=== PATIENT | female | born 1970 | race Caucasian/White ===

== ENCOUNTER → 2017-09-20 | Outpatient (CLI) | payer OTHER ==
[~2017-09-20] MED LIST: ACHYD1T PO; DCS100C PO; FEXO180T PO; IBP800T PO; NITR100C3 PO; PHEN200T27 PO; SOLI10TA4 PO
== END ==
LOC: RAD 14:07
PROVIDERS: ATTEND Obstetrics & Gynecology
DX: Z12.31 Encounter for screening mammogram for malignant neoplasm of breast (principal)
CPT/HCPCS: 77067

== ENCOUNTER 2017-10-24 06:27 | Outpatient (CLI) | payer OTHER ==
[~2017-10-24] VITALS: Ht 170.2 cm; Wt 91.2 kg
[2017-10-24] MEDS ORDERED: TOPI100T11 PO (13:26)
[2017-10-24] MEDS ORDERED: PREG150C PO (13:26)
[2017-10-24] MEDS ORDERED: HYDR25TA4 PO (13:26)
[2017-10-24] MEDS ORDERED: BUPR150T14 PO (13:26)
== END 2017-10-24 13:39 ==
LOC: PREOP 06:27
PROVIDERS: ATTEND Obstetrics & Gynecology
DX: Z01.818 Encounter for other preprocedural examination (principal); N76.5 Ulceration of vagina; D64.9 Anemia, unspecified

== ENCOUNTER 2017-10-26 12:43 | Day surgery (SDC) | payer OTHER ==
[~2017-10-26] VITALS: Ht 170.2 cm; Wt 91.2 kg
[~2017-10-26 12:43] MED LIST changes: +BUPR150T14 PO; +HYDR25TA4 PO; +PREG150C PO; +TOPI100T11 PO
[2017-10-26] MEDS ORDERED: ceFAZolin 1,000 MG (ANCEF) VIAL ONE (12:47)
--- OUTSIDE RECORDS SUMMARY | 2017-10-26 12:47 | XMS REPORT | Continuity of Care Document ---
Author Author [facility] Organization [facility] Address Unknown Phone Unavailable Allergies Active Description Code Type Severity Reaction Onset Reported/Identified Relationship to Patient Clinical Status Yes ciprofloxacin [id number] Drug Allergy Unknown N/V 10/24/2017 Medications Problems Date Dx Coded Attending Type Code Diagnosis Diagnosed By 08/22/2010 Ot 625.6 05/21/2012 Ot 617.3 PELV PERIT ENDOMETRIOSIS 05/21/2012 Ot 618.4 UTERVAGINAL PROLAPSE NOS 05/21/2012 Ot 621.0 POLYP OF CORPUS UTERI 05/21/2012 Ot 621.8 DISORDERS OF UTERUS NEC 05/21/2012 Ot 625.6 FEM STRESS INCONTINENCE 09/09/2015 Ot 470 09/09/2015 Ot 478.19 09/09/2015 Ot 780.79 09/09/2015 Ot V72.63 09/09/2015 Ot V72.81 09/09/2015 Ot V74.8 09/09/2015 Ot 470 09/09/2015 Ot 478.0 09/09/2015 Ot V76.12 09/09/2015 Ot 788.30 09/09/2015 Ot V72.83 09/09/2015 Ot V74.8 09/09/2015 Ot V76.12 09/09/2015 Ot 285.9 09/09/2015 Ot 618.4 09/09/2015 Ot 625.6 09/09/2015 Ot V72.63 09/09/2015 Ot 789.03 09/09/2015 Ot 793.5 09/09/2015 Ot V76.12 09/09/2015 COURT SHARMA, ANGELIC Pisano Ot V76.12 09/09/2015 TANIYA SHARMA, EMILY English Ot 537.1 09/09/2015 TANIYA SHARMA, EMILY English Ot 599.70 09/09/2015 TANIYA SHARMA, EMILY English Ot V13.02 09/09/2015 LINCOLN SHARMA, CRISTIANO Elkins Ot V76.12 09/24/2015 LINCOLN SHARMA, CRISTIANO Elkins Ot Z12.31 09/14/2016 Ot V76.12 OTH SCREEN MAMMO-MALIGN NEOPLASM OF [place] 09/14/2016 Ot 285.9 ANEMIA NOS 09/14/2016 Ot 618.4 UTERVAGINAL PROLAPSE NOS 09/14/2016 Ot 625.6 FEM STRESS INCONTINENCE 09/14/2016 Ot V72.63 PRE-PROCEDURAL LABORATORY EXAMINATION 09/14/2016 Ot 789.03 ABDOMINAL PAIN, RIGHT LOWER QUADRANT 09/14/2016 Ot 793.5 NOSP (ABN) FINDINGS ON RADIOLOGICAL OT 09/14/2016 Ot V76.12 OTH SCREEN MAMMO-MALIGN NEOPLASM OF [place] 09/14/2016 ANGELIC YUN MD Ot V76.12 OTH SCREEN MAMMO-MALIGN NEOPLASM OF [place] 09/14/2016 TANIYA SHARMA, EMILY English Ot 537.1 GASTRIC DIVERTICULUM 09/14/2016 TANIYA SHARMA, EMILY English Ot 599.70 HEMATURIA, UNSPECIFIED 09/14/2016 TANIYA SHARMA, EMILY English Ot V13.02 PERSONAL HISTORY, URINARY (TRACT) INFECT 09/14/2016 LINCOLN SHARMA, CRISTIANO Elknis Ot V76.12 OTH SCREEN MAMMO-MALIGN NEOPLASM OF [place] 09/14/2016 LINCOLN SHARMA, CRISTIANO Elkins Ot Z12.31 ENCNTR SCREEN MAMMOGRAM FOR MALIGNANT NE 09/14/2016 CRISTIANO STARK MD Ot Z12.31 ENCNTR SCREEN MAMMOGRAM FOR MALIGNANT NE 09/17/2017 Ot 285.9 ANEMIA NOS 09/17/2017 Ot 618.4 UTERVAGINAL PROLAPSE NOS 09/17/2017 Ot 625.6 FEM STRESS INCONTINENCE 09/17/2017 Ot V72.63 PRE-PROCEDURAL LABORATORY EXAMINATION 09/17/2017 Ot 789.03 ABDOMINAL PAIN, RIGHT LOWER QUADRANT 09/17/2017 Ot 793.5 NOSP (ABN) FINDINGS ON RADIOLOGICAL OT 09/17/2017 Ot V76.12 OTH SCREEN MAMMO-MALIGN NEOPLASM OF [place] 09/17/2017 ANGELIC YUN MD Ot V76.12 OTH SCREEN MAMMO-MALIGN NEOPLASM OF [place] 09/17/2017 TANIYA SHARMA, EMILY A Ot 537.1 GASTRIC DIVERTICULUM 09/17/2017 EMILY MONAHAN MD Ot 599.70 HEMATURIA, UNSPECIFIED 09/17/2017 EMILY MONAHAN MD Ot V13.02 PERSONAL HISTORY, URINARY (TRACT) INFECT 09/17/2017 CRISTIANO STARK MD Ot V76.12 OTH SCREEN MAMMO-MALIGN NEOPLASM OF [place] 09/17/2017 CRISTIANO STARK MD Ot Z12.31 ENCNTR SCREEN MAMMOGRAM FOR MALIGNANT NE 09/17/2017 CRISTIANO STARK MD Ot Z12.31 ENCNTR SCREEN MAMMOGRAM FOR MALIGNANT NE Procedures Results Encounters ACCT No. Visit Date/Time Discharge Status Pt. Type Provider Facility Loc./Unit Complaint [id number] 10/24/2017 06:27:00 2016 13:39:00 DIS Outpatient CRISTIANO STARK MD [facility] PREOP PERSISTENT VAGINAL ULCERATION [id number] 09/20/2017 14:07:00 2016 23:59:59 CLS Outpatient CRISTIANO STARK MD [facility] RAD SCREENING [id number] 09/14/2016 11:11:00 2015 23:59:59 CLS Outpatient CRISTIANO STARK MD [facility] RAD SCREENING [id number] 09/09/2015 09:59:00 2014 23:59:59 CLS Outpatient CRISTIANO STARK MD [facility] RAD SCREENING [id number] 09/18/2014 15:07:00 2013 23:59:59 CLS Outpatient CRISTIANO STARK MD [facility] RAD SCREENING [id number] 01/26/2014 16:02:00 2013 23:59:59 CLS Outpatient EMILY MONAHAN MD [facility] RAD HEMATURIA,UTIS [id number] 09/17/2013 15:04:00 2012 23:59:59 CLS Outpatient ANGELIC YUN MD [facility] RAD SCREENING [id number] 10/26/2017 12:43:00 ACT Outpatient LINCOLN SHARMA, CRISTIANO Diaz [facility] PERSISTENT VAGINAL ULCERATION [id number] 09/16/2012 15:04:00 Document Registration [id number] 07/08/2012 17:00:00 Document Registration [id number] 05/20/2012 05:49:00 Document Registration [id number] 05/13/2012 10:33:00 Document Registration [id number] 06/23/2011 13:44:00 Document Registration [id number] 08/22/2010 05:59:00 Document Registration [id number] 08/18/2010 08:18:00 Document Registration [id number] 06/14/2010 11:08:00 Document Registration [id number] 05/26/2010 05:39:00 Document Registration [id number] 05/23/2010 08:41:00 Document Registration
[2017-10-26] MEDS ORDERED: NS (IVPB) 50 ML ONE (12:48)
[2017-10-26] MEDS ORDERED: MIDAZOLAM 2 MG/2 ML (VERSED) VIAL ONE (12:58)
[2017-10-26] MEDS ORDERED: fentaNYL INJECTION 100 MCG/2 ML AMP ONE (12:58)
[2017-10-26] MEDS: LACTATED RINGERS 1,000 ML IV PRN ×2 (13:00→14:06)
[2017-10-26 13:04] LABS: BASOPHILS % (AUTO) 1 % (0-10); EOSINOPHILS # (AUTO) 0.1 10^3/uL (0.0-0.3); EOSINOPHILS % (AUTO) 1 % (0-10); LYMPHOCYTES # (AUTO) 2.4 X 10^3 (1.0-4.0); LYMPHOCYTES % (AUTO) 30 % (12-44); MEAN CORPUSCULAR HEMOGLOBIN 30 PG (25-34); MEAN CORPUSCULAR HGB CONC 35 G/DL (32-36); MEAN CORPUSCULAR VOLUME 87 FL (80-99); MONOCYTES # (AUTO) 0.6 X 10^3 (0.0-1.0); MONOCYTES % (AUTO) 8 % (0-12); NEUTROPHILS # (AUTO) 4.7 X 10^3 (1.8-7.8); NEUTROPHILS % (AUTO) 60 % (42-75); PLATELET COUNT 259 10^3/uL (130-400); RED BLOOD COUNT 4.75 10^6/uL (4.35-5.85); RED CELL DISTRIBUTION WIDTH 12.8 % (10.0-14.5); WHITE BLOOD COUNT 7.8 10^3/uL (4.3-11.0)
--- NOTE | 2017-10-26 13:07 | Progress Note-Pre Operative ---
Pre-Operative Progress Note H&P Reviewed The H&P was reviewed, patient examined and no changes noted. Date Seen by Provider: Oct 26, 2017 Time Seen by Provider: 13:07 Date H&P Reviewed: Oct 26, 2017 Time H&P Reviewed: 13:07 Pre-Operative Diagnosis: persistent vaginal apex ulceration CRISTIANO STARK MD Oct 26, 2017 1:07 pm
[2017-10-26] MEDS ORDERED: D5 LR IV SOLUTION 1,000 ML IV SCH (13:08)
--- NOTE | 2017-10-26 13:08 | Progress Note-Post Operative ---
Post-Operative Progess Note Surgeon (s)/Metallurgical Laboratory Assistant (s) Surgeon CRISTIANO STARK MD Metallurgical Laboratory Assistant: Alisia Andrews Pre-Operative Diagnosis persistent vaginal apex ulceration Post-Operative Diagnosis same with pathology pending Procedure & Operative Findings Date of Procedure 10/26/17 Procedure Performed/Findings ppartial vaginectomy Anesthesia Type Gen. Estimated Blood Loss Estimated blood loss (mL): minimal Specimens/Packing Specimens Removed partial vaginectomy Packing: none CRISTIANO STARK MD Oct 26, 2017 13:08
[2017-10-26] MEDS ORDERED: OXYC-202 PO (13:10)
--- NOTE | 2017-10-26 13:11 | Discharge Instructions ---
Discharge Instructions Discharge Medications New, Converted or Re-Newed RX: RX on Chart Patient Instructions Patient Instructions: as directed Return to The Hospital For: as directed Activity & Diet Discharge Diet: No Restrictions Activity as Tolerated: No Orders-Post D/C & Referrals Follow Up Appt: Call to make follow up appt. for patient in 1 weeks. Activity: Rest for 24 hours, than as tolerated. Diet: As tolerated-Clear Liquids only if nauseated. May shower or tub bathe as desired. No driving for 24 hours, no alcoholic beverages for 24 hours, and nothing per vagina (no tampons, douching, or intercourse) for 2 weeks. Patient to return to the clinic as soon as possible for: Temperature greater than 101F, Severe Pain, Foul discharge from incision or vagina, Excessive Bleeding (more than a period). CRISTIANO STARK MD Oct 26, 2017 1:11 pm
[2017-10-26] MEDS ORDERED: PROMETHAZINE INJ 25 MG/ML (PHENERGAN) AMP IM ONE (13:15)
[2017-10-26] MEDS ORDERED: KETOROLAC 30 MG/ML VIAL IVP ONE (13:15)
[2017-10-26] MEDS ORDERED: MEPERIDINE (DEMEROL) INJ 100 MG/ML IM ONE (13:15)
[2017-10-26] MEDS ORDERED: ceFAZolin 1 GM/NS 50 ML IVPB IV ONE ×2 (13:15)
[2017-10-26] MEDS ORDERED: oxyCODONE/APAP 10/325MG (PERCOCET 10) TABLET PO PRN (13:15)
[2017-10-26] MEDS ORDERED: ONDANSETRON 4 MG/2 ML (SDV) Z0FRAN IVP PRN (13:15)
[2017-10-26 13:19] VITALS: BP 101/57
[2017-10-26] MEDS ORDERED: SEVOFLURANE (ULTANE) 15 ML INHAL SOLN ONE (13:23)
[2017-10-26] MEDS ORDERED: DEXAMETHASONE 10 MG/ML (DECADRON) 1 ML VIAL ONE (13:24)
[2017-10-26] MEDS ORDERED: ONDANSETRON 4 MG/2 ML (SDV) Z0FRAN ONE (13:24)
[2017-10-26] MEDS ORDERED: proPOfol 200 MG/20 ML (DIPRIVAN) VIAL IV ONE (13:24)
[2017-10-26] MEDS ORDERED: LIDOCAINE PF 2% 5 ML (XYLOCAINE) VIAL ONE (13:24)
[2017-10-26 14:55] VITALS: BP 92/54
[2017-10-26 15:25] VITALS: BP 95/47
[2017-10-26 15:55] VITALS: BP 101/62
[2017-10-26 16:10] VITALS: BP 101/62
--- NOTE | 2017-10-26 19:23 | OPERATIVE REPORT ---
DATE OF SERVICE: 10/26/2017 PREOPERATIVE DIAGNOSIS: Vaginal ulceration nonhealing. POSTOPERATIVE DIAGNOSIS: Vaginal ulceration, nonhealing. OPERATIVE PROCEDURE: Partial vaginectomy of the right vaginal apex, lateral fornix of the cervix. OPERATIVE DESCRIPTION: With the patient in the supine position under satisfactory general anesthesia, she was repositioned in the dorsal lithotomy position in the Kingsley stirrups and prepped and draped in the usual fashion for vaginal surgery. A speculum was placed in the vagina. The defect at the right apex of the vagina just lateral to the cervix was identified, it was approximately a cm and half in diameter, somewhat longer AP versus along the wall of the vagina. An Allis clamp was placed on the superior and inferior aspect of this defect and then Metzenbaum scissors were used to sharply excise the defect in its entirety by undermining the defect. That piece of tissue was sent to pathology for permanent section. The defect now on the vaginal wall was closed with suture of 3-0 Vicryl Rapide, first approximating the subcutaneous tissue and then a running locking suture to close the defect onto itself. Good hemostasis was achieved. Good anatomic reapproximation was achieved. The closure was circumferential narrow the caliber of the vagina. The sponge and needle counts were correct on completion of the repair. There was no bleeding from the defect once the repair was closed. Sponge and needle counts were correct on completion of the procedure. ESTIMATED BLOOD LOSS: Around 50 mL. The patient tolerated the procedure well, was uneventfully awakened from general anesthesia and transferred to the recovery room in stable condition with plans for discharge home PAR. Job ID: [id number] DocumentID: [id number] Dictated Date: 10/26/2017 13:55:32 Home School Teacher Date: 10/26/2017 19:22:39 Dictated By: CRISTIANO STARK MD
== END 2017-10-26 16:10 | disposition home or self-care (01) ==
LOC: SDC 12:43
PROVIDERS: ATTEND Obstetrics & Gynecology
DX: N76.5 Ulceration of vagina (principal); Z11.2 Encounter for screening for other bacterial diseases; I10 Essential (primary) hypertension; M79.7 Fibromyalgia; F41.9 Anxiety disorder, unspecified; Z79.899 Other long term (current) drug therapy; Z88.1 Allergy status to other antibiotic agents
CPT/HCPCS: 36415; 85025; 87081

== ENCOUNTER → 2018-09-27 | Outpatient (CLI) | payer OTHER ==
[~2018-09-27] MED LIST changes: +OXYC1TAB12 PO
--- NOTE | 2018-09-27 17:38 | Diagnostic Imaging Report ---
INDICATION: Routine screening. COMPARISON: Prior mammograms from 09/20/2017 and 09/14/2016. EXAMINATION: 2D and 3D bilateral screening mammography was performed with CAD. The current study was also evaluated with a Computer Aided Detection (CAD) system. FINDINGS: Both breasts are heterogeneously dense, limiting the sensitivity of mammography. The parenchymal pattern is stable. No mass or malignant appearing microcalcifications are seen. The axillae are unremarkable. IMPRESSION: No mammographic features suspicious for malignancy are identified. ACR BI-RADS Category 1: Negative. Result letter will be mailed to the patient. Note: At least 10% of breast cancer is not imaged by mammography. Dictated by: Dictated on workstation # [id number]
== END ==
LOC: RAD 08:53
PROVIDERS: ATTEND Obstetrics & Gynecology
DX: Z12.31 Encounter for screening mammogram for malignant neoplasm of breast (principal)
CPT/HCPCS: 77067

== ENCOUNTER → 2019-09-30 | Outpatient (CLI) | payer BC, OTHER ==
--- NOTE | 2019-09-30 16:34 | Diagnostic Imaging Report ---
INDICATION: Screening. The current study was also evaluated with a Computer Aided Detection (CAD) system. 3-D Tomographic imaging was also performed. Comparison made with prior examinations of 09/27/2018, 09/20/2017, and 09/14/2016. FINDINGS: There are scattered fibroglandular densities bilaterally. There is no dominant mass, spiculated lesion, or suspicious calcification identified. The skin, nipples, and axillae are unremarkable. IMPRESSION: Negative. ACR BI-RADS Category 1: Negative. Result letter will be mailed to the patient. Note: At least 10% of breast cancer is not imaged by mammography. Dictated by: Dictated on workstation # [id number]
== END ==
LOC: RAD 14:27
PROVIDERS: ATTEND Nurse Practitioner Family
DX: Z12.31 Encounter for screening mammogram for malignant neoplasm of breast (principal)
CPT/HCPCS: 77067

== ENCOUNTER → 2020-10-08 | Outpatient (CLI) | payer BC ==
--- NOTE | 2020-10-11 09:06 | Diagnostic Imaging Report ---
Indication: Routine screening. Comparison is made with prior mammogram 09/30/2019 and 09/27/2018. 2-D and 3-D bilateral screening mammography was performed with CAD. Scattered fibroglandular densities are identified bilaterally. The parenchymal pattern is stable. No mass or malignant appearing microcalcifications are seen. Axillae are unremarkable. IMPRESSION: BI-RADS Category 1 No mammographic features suspicious for malignancy are identified. ACR BI-RADS Category 1: Negative. Result letter will be mailed to the patient. Note: At least 10% of breast cancer is not imaged by mammography. Dictated by: Dictated on workstation # [id number]
== END ==
LOC: RAD 15:16
DX: Z12.31 Encounter for screening mammogram for malignant neoplasm of breast (principal)
CPT/HCPCS: 77063; 77067

== ENCOUNTER → 2021-10-11 | Outpatient (CLI) | payer BC ==
--- NOTE | 2021-10-11 20:07 | Diagnostic Imaging Report ---
INDICATION: Routine screening. COMPARISON is made with prior mammograms from 10/08/2020 and 09/30/2019. 2-D and 3-D bilateral screening mammography was performed with CAD. Both breasts are heterogeneously dense, limiting the sensitivity of mammography. The parenchymal pattern is stable. No mass or malignant-appearing microcalcifications are seen. Axillae are unremarkable. IMPRESSION: BI-RADS Category 1 No mammographic features suspicious for malignancy are identified. ACR BI-RADS Category 1: Negative. Result letter will be mailed to the patient. Note: At least 10% of breast cancer is not imaged by mammography. Dictated by: Dictated on workstation # [id number]
== END ==
LOC: RAD 15:25
DX: Z12.31 Encounter for screening mammogram for malignant neoplasm of breast (principal)
CPT/HCPCS: 77063; 77067

== ENCOUNTER → 2022-10-13 | Outpatient (CLI) | payer BC, OTHER ==
[~2022-10-13] MED LIST changes: +BUPR-105 PO; -BUPR150T14 PO
--- NOTE | 2022-10-16 11:12 | Diagnostic Imaging Report ---
INDICATION: Routine screening. Comparison is made with prior mammograms of 10/11/2021 and 10/08/2020. 2-D and 3-D bilateral screening mammography was performed with CAD. Scattered fibroglandular densities are identified bilaterally. No mass or malignant-appearing microcalcifications are seen. Axillae are unremarkable. IMPRESSION: No mammographic features suspicious for malignancy are identified. ACR BI-RADS Category 1: Negative. Result letter will be mailed to the patient. Note: At least 10% of breast cancer is not imaged by mammography. BI-RADS Category 1 Dictated by: Dictated on workstation # [id number]
== END ==
LOC: RAD 15:45
PROVIDERS: ATTEND Family Medicine
DX: Z12.31 Encounter for screening mammogram for malignant neoplasm of breast (principal)
CPT/HCPCS: 77063; 77067